=== PATIENT | male | born 1990 | race Caucasian/White ===

== ENCOUNTER 2024-02-28 09:45 | Emergency (ER) | payer OTHER, SELFPAY ==
[2024-02-28] VITALS (11 sets, daily range): BP systolic 123–142; BP diastolic 79–95; BMI 32.4
[2024-02-28 10:12] LABS: % Basophils 0.9 % (0-2); % Eosinophils 1.4 % (0-6); % Immature Granulocytes 0.7 % (0-0.5); % Lymphocytes 43.6 % (20.5-51.1); % Monocytes 9.1 % (1.7-9.3); % Neutrophils 44.3 % (42.2-75.2); Absolute Eosinophils 0.1 10^3/uL (0-0.7); Absolute Lymphocytes 1.9 10^3/uL (1.2-3.4); Absolute Monocytes 0.4 10^3/uL (0.1-0.6); Absolute Neutrophils 1.9 10^3/uL (1.4-6.5); Hematocrit 40.8 % (39.0-52.0); Hemoglobin 14.7 g/dL (13.0-18.0); Mean Corpuscular Hgb 33.7 pg (27.0-31.0); Mean Corpuscular Volume 93.6 fL (80.0-94.0); Mean Platelet Volume 9.2 fL (7.4-10.4); Nucleated Red Blood Cells % 0 % (-); Platelet Count 192 10^3/uL (130-400); Red Blood Cell Count 4.36 10^6/uL (4.70-6.10); Red Cell Dist. Width 12.1 % (11.5-14.5); White Blood Cell Count 4.4 10^3/uL (4.8-10.8)
--- NOTE | 2024-02-28 10:23 | ED.GENMED ---
History of Present Illness
General
Chief Complaint: Chest Pain
Source: patient and records
Exam Limitations: none
Time Seen by Provider: 02/28/24 10:21
Nursing documentation reviewed up to this point in time: agreed with
Travel History
Have you had any contact with someone who has COVID-19?: No
Do you have any symptoms of coronavirus? Fever > 100 degrees, chills, cough, shortness of breath, sore throat, loss of taste or smell, muscle aches, or headache?: No
History of Present Illness
History of Present Illness:
33 y/o male with PMH of epilepsy, asthma, presenting to the emergency department today with chest pain that started 20 min ago. He states that he was at work today when he suddenly experienced 10/10, mid sternal chest pain that radiated through his
chest and through the back. He said the pain was constant at the time and then while sitting in the ER, it started to resolve and soon and currently it is a 3 out of 10 in severity and the back pain went away. Patient states that when he is having
the pain, there is nothing in particular that made it worse, did not worsen with exertion. He has no associated shortness of breath, nausea, vomiting, abdominal pain. He denies any fevers or chills. Denies any coughing or upper URI symptoms.
Does have a family history of coronary artery disease in his maternal grandfather. Patient does vape frequently and drinks alcohol almost daily. Patient does follow with a primary care provider. Patient has a hx of seizure disorder for which he
takes lamictal daily.
Past History
Past History
ED Past Medical History: None
Social History
Tobacco: Non-smoker
Personal: Single
Living: with family
Employment: Other (Service, [employer])
Review of Systems
Review of Systems
All Other Systems: ROS reviewed and negative except as documented in HPI and ROS
Phy Exam
Physical Exam
Physical Exam:
Vitals: Vital signs are stable
General: Patient is well appearing and in no acute distress
Skin: Warm and dry, no rashes or lesions
Head: Normocephalic, atraumatic
Eyes: Scleral non-icteric
Cardiac: Regular rate and rhythm, no murmurs. No tenderness to palpation of the external chest wall.
Peripheral Vascular: No lower extremity edema, 2+ DP pulses b/l
Pulm: Normal respiratory effort, no wheezes
Abdomen: No abdominal tenderness
Neuro: CN II-XII intact, no focal neurologic deficits
Scores
Heart Score for Chest Pain Patients
STEMI patient?: No
History: Slightly or Non-Suspicious
ECG: Nonspecific Repolarization
Age: </= 45 years
Risk Factors: 1 or 2 Risk Factors
Troponin: </= Normal Limit
Heart Score for Chest Pain Patients: 2
Heart Score Risk: 2.5% MACE over next 6 weeks
Course
Orders/Labs/Results
Orders:
Orders
02/28/24 09:47
ECG [Electrocardiogram (*1)] Urgent
Reason for Study: Chest Pain
EKG- Treatment ONCE
02/28/24 10:03
Complete Blood Count/With Diff Urgent
Comprehensive Metabolic Panel Urgent
Troponin I Urgent
02/28/24 10:42
CR Chest - 2 Views Urgent
Comment:
Reason For Exam: chest pain
02/28/24 12:02
EKG [Electrocardiogram (*1)] Urgent
Reason for Study: Chest Pain
Comment: 2nd troponin
02/28/24 12:03
EKG- Treatment ONCE
02/28/24 12:15
Troponin I Urgent
Abnormal Lab Results
02/28/24
10:03
WBC 4.4 L 10^3/uL
(4.8-10.8)
RBC 4.36 L 10^6/uL
(4.70-6.10)
MCH 33.7 H pg
(27.0-31.0)
Immature Gran % 0.7 H %
(0-0.5)
ALT 84 H U/L
(0-50)
02/28/24 10:03
02/28/24 10:03
Vital Signs
Initial and Last Documented VS:
Initial Vital Signs
Temp Pulse Resp BP Pulse Ox
97.6 F 95 20 133/95 96
02/28/24 09:51 02/28/24 09:51 02/28/24 09:51 02/28/24 09:51 02/28/24 09:51
Last Documented Vital Signs
Temp Pulse Resp BP Pulse Ox
97.6 F 73 13 125/90 96
02/28/24 09:51 02/28/24 13:00 02/28/24 13:00 02/28/24 12:00 02/28/24 10:19
MDM/Problems Addressed
Differential Diagnosis Includes:
ddx include ACS, pneumothorax, asthma exacerbation, GERD, costochondritis
Chronic conditions affecting care: Other (epilepsy, asthma)
Acute Exacerbation and/or Progression of Chronic Illness: Other (epilepsy, asthma)
*Critical Care Note
Total Time (30-74mins, 75-104mins- exclusive of procedures): Not Applicable
Patient Management
Escalation/DeEscalation of care consider admission/obs:
33 y/o male with PMH of epilepsy, asthma, presenting to the emergency department today with chest pain that started 20 min ago. He states that he was at work today when he suddenly experienced 10/10, mid sternal chest pain that radiated through his
chest and through the back. Currently, his pain has largely resolved without intervention and now he has 3/10 chest pain with no back pain. CBC/CMP unremarkable, initial troponin normal, CXR negative. EKG demonstrates normal sinus rhythm with
questionable T wave inversion in lateral leads. Repeat troponin negative, repeat EKG with no new changes. We will have patient follow up with [place] chest pain hotline. Patient stable for discharge, return precautions given.
ED Attending Note
-
Portions of this chart may have been created with voice recognition software.� Occasional wrong word or��sound alike� substitutions may have occurred due to the inherent limitations of voice recognition software.
Discharge Plan
Departure
Patient Disposition: Home (Routine Discharge)
Date of Disposition: 02/28/24
Time of Disposition: 13:06
Patient with high blood pressure during this ER visit?: Yes
Condition: Good
Discharge Problem:
Chest pain
Instructions: Chest Pain DCA Follow Up, BLOOD PRESSURE
Referrals:
Noel Blum MD [Active] - Call in 1-3 days for appt
UNKNOWN - PT DOES,NOT KNOW [Family Provider] -
Activity Restrictions/Additional Instructions:
You should receive a call within the coming days to schedule an appointment with a sweatband shaper. If you do not receive a call, please call the number attached number to schedule an appointment.
Please follow up with your primary care provider.
PLEASE RETURN TO THE EMERGENCY DEPARTMENT SHOULD YOU EXPERIENCE AN ACUTE WORSENING OF YOUR PAIN, SHORTNESS OF BREATH, PALPITATIONS, SYNCOPAL EPISODES, DIZZINESS, LIGHTHEADEDNESS, BACK PAIN, OR OTHER CONCERNING SIGNS OR SYMPTOMS.
Interventions
Interventions:
*Risk Screen - Suicide Last Done: 02/28/24 09:51
*General Assessment Last Done: 02/28/24 09:51
*Neglect/Abuse Screening Last Done: 02/28/24 09:51
ED- Fall Risk Assessment Last Done: 02/28/24 10:19
*ED COVID-19 Vaccine History Last Done: 02/28/24 10:19
ED- Cardiac Assessment Last Done: 02/28/24 10:19
Discharge Date and Time
Print Language: FRISIAN
[2024-02-28 11:06] LABS: ALT (SGPT) 84 U/L (0-50); AST (SGOT) 56 U/L (17-59); Albumin 4.7 g/dl (3.5-5.0); Alkaline Phosphatase 61 U/L (38-126); Blood Urea Nitrogen 13 mg/dl (9-20); Carbon Dioxide 30 mmol/L (22-30); Chloride 102 mmol/L (98-107); Estimated Creatinine Clearance 122 ml/min; Glucose 91 mg/dl (70-99); Potassium 4.1 mmol/L (3.5-5.1); Sodium 140 mmol/L (135-145); Total Bilirubin 0.5 mg/dl (0.2-1.3); Troponin I < 0.012 ng/ml; eGFR > 60.00
[2024-02-28 12:58] LABS: Troponin I < 0.012 ng/ml
--- NOTE | 2024-02-28 13:21 | EDRN ---
Reviewed discharge instructions with patient. Verbalized understanding. Ambulated with steady gait to the lobby.
== END 2024-02-28 13:20 | disposition home or self-care (01) ==
LOC: EMR 09:45
PROVIDERS: Physician Assistant; EMERGENCY PHYSICIAN Emergency Medicine
DX: R07.9 Chest pain, unspecified (principal); R07.2 Precordial pain; J45.909 Unspecified asthma, uncomplicated; R03.0 Elevated blood-pressure reading, without diagnosis of hypertension; Z82.49 Family history of ischemic heart disease and other diseases of the circulatory system
CPT/HCPCS: 99285; 71046; 80053; 84484; 85025; 93005

== ENCOUNTER 2025-05-28 21:43 | Inpatient (IN) | payer OTHER, SELFPAY ==
[2025-05-28 14:19] VITALS: BP 145/85
[2025-05-28] MEDS: TYLENOL 1000 MG PO (14:30)
[2025-05-28 14:54] LABS: Hematocrit 40.7 % (39.0-52.0); Hemoglobin 14.2 g/dL (13.0-18.0); Mean Corp Hgb Conc. 34.9 g/dL (33.0-37.0); Mean Corpuscular Volume 95.1 fL (80.0-94.0); Nucleated Red Blood Cells % 0 % (-); Platelet Count 255 10^3/uL (130-400); Red Cell Dist. Width 11.5 % (11.5-14.5)
[2025-05-28 15:20] LABS: ALT (SGPT) 28 U/L (0-50); AST (SGOT) 26 U/L (17-59); Albumin 4.4 g/dl (3.5-5.0); Alkaline Phosphatase 81 U/L (38-126); Blood Urea Nitrogen 17 mg/dl (9-20); Calcium 9.5 mg/dl (8.4-10.2); Carbon Dioxide 24 mmol/L (22-30); Chloride 104 mmol/L (98-107); Potassium 4.2 mmol/L (3.5-5.1); Sodium 137 mmol/L (135-145); Total Protein 6.9 g/dl (6.3-8.2); eGFR > 60.00
[2025-05-28 15:31] LABS: Glucose 98 mg/dl (70-99)
[2025-05-28 16:00] VITALS: BP 133/76
[2025-05-28 16:21] VITALS: BMI 31.6
[2025-05-28] MEDS: TORADOL 15 MG IV (16:23)
[2025-05-28] MEDS: NSS 1000 IV ×2 (16:23→23:21)
--- NOTE | 2025-05-28 16:31 | ED.GENMED ---
History of Present Illness
<Ngoc Del Rosario PA-C - Last Filed: 05/29/25 01:26>
General
Chief Complaint: Fever
Source: patient
Exam Limitations: none
Time Seen by Provider: 05/28/25 15:44
Nursing documentation reviewed up to this point in time: agreed with
History of Present Illness
History of Present Illness:
Patient is a 34-year-old male with history epilepsy who presents to the emergency department for evaluation of fever. Patient states yesterday he had a temp of 102F at home. He also reports cramping pain in his lower abdomen which was somewhat
constant yesterday however seems somewhat improved today. On arrival to the emergency department�she had a fever of 102.2 and was given a gram of Tylenol. By my assessment is temperature is 99.7.
Patient denies any associated nausea, vomiting, constipation. Patient denies any dysuria or hematuria.
Of note�patient admitted for 1 night in the hospital on 05/17/2025 for diverticulitis with microperforation. Apparently he was given 1 day of IV antibiotics and transitioned to oral Augmentin which he took twice a day for a week. He recently
finished this course a few days ago prior to return of pain and fever. He states he has had diarrhea since the hospitalization.
Past History
<Ngoc Del Rosario PA-C - Last Filed: 05/29/25 01:26>
Past History
ED Past Medical History: None
Social History
Tobacco: Non-smoker
Personal: Single
Living: with family
Employment: Other (Service, [employer])
Review of Systems
<Ngoc Del Rosario PA-C - Last Filed: 05/29/25 01:26>
Review of Systems
Allergies reviewed?: Yes
All Other Systems: ROS reviewed and negative except as documented in HPI and ROS
Phy Exam
<Ngoc Del Rosario PA-C - Last Filed: 05/29/25 01:26>
Physical Exam
Physical Exam:
Vitals: Febrile, tachycardic
General: Patient is in no apparent distress.
Skin: Warm and dry, no rashes or lesions
Head: Normocephalic, atraumatic
Eyes: Sclera nonicteric.
Throat: Protecting airway
Neck: Normal ROM, no cervical spine tenderness, no meningismus
Cardiac: Mildly tachycardic, normal rhythm no murmurs.
Pulm: Normal respiratory effort, no wheezes, rales, rhonchi heard on exam
.
Abdomen: Abdomen soft. Moderate tenderness in suprapubic/left lower quadrant voluntary guarding.
Extremities: No evidence of cyanosis or edema
Neuro: AAOx3. Grossly intact.
Psychiatric: Normal affect.
Sepsis
<Ngoc Del Rosario PA-C - Last Filed: 05/29/25 01:26>
Sepsis Screening
Sepsis Assessment: Sepsis
Sepsis Screen
Sepsis Screen: Sepsis
Date: 05/28/25
Time: 20:00
Course
<Ngoc Del Rosario PA-C - Last Filed: 05/29/25 01:26>
Orders/Labs/Results
Orders:
Orders
05/28/25 14:27
Acetaminophen [Tylenol] 1,000 mg .ROUTE .STK-MED ONE
05/28/25 14:29
Acetaminophen [Tylenol] 1,000 mg PO NOW STA
05/28/25 14:45
CMP [Comprehensive Metabolic Panel] Urgent
Complete Blood Count/With Diff Urgent
Lactic Acid Urgent
Blood Culture Stat
JOSE Source: Blood/Venous
Specimen Description:
05/28/25 16:15
CT Abd/pelvis W Iv Cont Urgent
Comment: recently treated diverticulitis w/ microperf
Reason For Exam: peristent LLQ pain, fever
05/28/25 16:16
0.9% Sodium Chloride 1000 ml [Nss] 1,000 ml IV BOLUS
Ketorolac [Toradol] 15 mg IV NOW STA
05/28/25 16:22
COVID-19 Antigen Urgent
Source: Nasal Swab
Urinalysis Reflex To Culture Urgent
Date Specimen was Collected: 05/28/25
Time Specimen was Collected: 16:18
Urine Microscopic Reflex Cult Urgent
Blood Culture Urgent
JOSE Source: Blood/Venous
Specimen Description:
05/28/25 20:32
Morphine Sulfate 4 mg IV NOW STA
05/28/25 20:39
Ampicillin/Sulbactam 3 G [Unasyn] 3 gm 0.9% Sodium Chloride 100 ml [Nss] 100 ml IV NOW
05/28/25 21:25
Admit/Transfer Patient As Directed
Co-Sign Provider:
Level of Care: Inpatient admission
Assign to:: Medical/Surgical
Physician / Group: Sanchez Narvaez
Diagnosis: sepsis, Perforated sigmoid colitis, Pericolonic abscess
Reason for Hospitalization: sepsis, Perforated sigmoid colitis, Pericolonic abscess
Expected length of stay greater than two midnights?: Yes
ELOS- Estimated Length of Stay in days: 3
I certify the patient meets the requirements for IP care: Yes
PRN Pain Medication Management As Directed
May give lesser potent ordered pain med per pt: Yes
preference::
Protocol:: Medication orders for pain may be administered in a
manner that supports deferring to patient preference
when the pt is:
- Requesting an ordered lesser potent pain medication.
Least to most potent pain medications are defined
as: acetaminophen < NSAID < tramadol < opioids
(morphine, oxycodone, hydromorphone).
- Requesting a lesser dose of the same medication IF
ORDERED.
- Requesting a less intrusive route of administration
if both routes are prescribed by the provider (PO <
IV).
05/28/25 21:27
Code Status As Directed
Resuscitation Status: Full Code
05/28/25 22:09
Acetaminophen [Tylenol] 650 mg PO Q4HPRN PRN
Bisacodyl [Dulcolax] 10 mg RECTAL [id number] PRN
Docusate Sodium [Colace] 100 mg PO BIDPRN PRN constipation
Docusate W/Senna [Senokot-S] 1 tablet PO BIDPRN PRN
Ketorolac [Toradol] 10 mg IV Q6HPRN PRN
Morphine Sulfate 2 mg IV Q4HPRN PRN
Ondansetron Injectable [Zofran] 4 mg IV Q6HPRN PRN
Polyethylene Glycol Powder [Miralax] 17 grams PO DAILYPRN PRN
05/28/25 22:09
ColoRectal Surgery Consult Routine
Consulting Provider: Eliseo Talley
Was physician already notified: Yes
Activity As Directed
Activity Level: Ambulate
Pneumatic Compression Sleeves As Directed
Type: Knee high
Vital Signs As Directed
Frequency: Per unit guidelines
Weight As Directed
Frequency: Once
Comment: on admission
DX Deep Vein Thrombosis Video Routine
05/29/25 04:00
Piperacillin/Tazo 3.375 Gram [Zosyn] 3.375 gram in 50 ml IV Q6H
05/29/25 Breakfast
NPO
Allow oral meds: Yes
Allow clear liquids: 4hrs prior to procedure
NPO with Ice Chips: Yes
Comment: may have unrestricted clear liquid up to 4 hrs prior to scheduled procedure
Basic Metabolic Panel IN AM
Complete Blood Count/No Diff IN AM
05/29/25 08:00
Lamotrigine [Lamictal] 200 mg PO BID
Abnormal Lab Results
05/28/25 05/28/25
14:45 16:22
RBC 4.28 L 10^6/uL
(4.70-6.10)
MCV 95.1 H fL
(80.0-94.0)
MCH 33.2 H pg
(27.0-31.0)
Abs Immat Gran (auto) 0.1 H 10^3/uL
(0-0.05)
Absolute Neuts (auto) 6.6 H 10^3/uL
(1.4-6.5)
Absolute Lymphs (auto) 0.7 L 10^3/uL
(1.2-3.4)
Immature Gran % 0.6 H %
(0-0.5)
Neutrophils % 83.9 H %
(42.2-75.2)
Lymphocytes % 8.9 L %
(20.5-51.1)
Urine Ketones 3+ A
(Negative)
Urine Bacteria (Reflex) Few A
(Negative)
Urine Albumin (Reflex) 2+ A
(Neg - Trace)
05/28/25 14:45
05/28/25 14:45
Vital Signs
Initial and Last Documented VS:
Initial Vital Signs
Temp Pulse Resp BP Pulse Ox
102.2 F H 109 16 145/85 97
05/28/25 14:19 05/28/25 14:19 05/28/25 14:19 05/28/25 14:19 05/28/25 14:19
Last Documented Vital Signs
Temp Pulse Resp BP Pulse Ox
101.7 F H 109 20 162/82 97
05/28/25 22:17 05/28/25 22:17 05/28/25 22:17 05/28/25 22:17 05/28/25 22:17
<Fausto Cobian MD - Last Filed: 05/28/25 19:14>
Orders/Labs/Results
Orders:
Orders
05/28/25 14:27
Acetaminophen [Tylenol] 1,000 mg .ROUTE .STK-MED ONE
05/28/25 14:29
Acetaminophen [Tylenol] 1,000 mg PO NOW STA
05/28/25 14:45
CMP [Comprehensive Metabolic Panel] Urgent
Complete Blood Count/With Diff Urgent
Lactic Acid Urgent
Blood Culture Stat
JOSE Source: Blood/Venous
Specimen Description:
05/28/25 16:15
CT Abd/pelvis W Iv Cont Urgent
Comment: recently treated diverticulitis w/ microperf
Reason For Exam: peristent LLQ pain, fever
05/28/25 16:16
0.9% Sodium Chloride 1000 ml [Nss] 1,000 ml IV BOLUS
Ketorolac [Toradol] 15 mg IV NOW STA
05/28/25 16:22
COVID-19 Antigen Urgent
Source: Nasal Swab
Urinalysis Reflex To Culture Urgent
Date Specimen was Collected: 05/28/25
Time Specimen was Collected: 16:18
Urine Microscopic Reflex Cult Urgent
Blood Culture Urgent
JOSE Source: Blood/Venous
Specimen Description:
05/28/25 20:32
Morphine Sulfate 4 mg IV NOW STA
05/28/25 20:39
Ampicillin/Sulbactam 3 G [Unasyn] 3 gm 0.9% Sodium Chloride 100 ml [Nss] 100 ml IV NOW
05/28/25 21:25
Admit/Transfer Patient As Directed
Co-Sign Provider:
Level of Care: Inpatient admission
Assign to:: Medical/Surgical
Physician / Group: Sanchez Narvaez
Diagnosis: sepsis, Perforated sigmoid colitis, Pericolonic abscess
Reason for Hospitalization: sepsis, Perforated sigmoid colitis, Pericolonic abscess
Expected length of stay greater than two midnights?: Yes
ELOS- Estimated Length of Stay in days: 3
I certify the patient meets the requirements for IP care: Yes
PRN Pain Medication Management As Directed
May give lesser potent ordered pain med per pt: Yes
preference::
Protocol:: Medication orders for pain may be administered in a
manner that supports deferring to patient preference
when the pt is:
- Requesting an ordered lesser potent pain medication.
Least to most potent pain medications are defined
as: acetaminophen < NSAID < tramadol < opioids
(morphine, oxycodone, hydromorphone).
- Requesting a lesser dose of the same medication IF
ORDERED.
- Requesting a less intrusive route of administration
if both routes are prescribed by the provider (PO <
IV).
05/28/25 21:27
Code Status As Directed
Resuscitation Status: Full Code
05/28/25 22:09
Acetaminophen [Tylenol] 650 mg PO Q4HPRN PRN
Bisacodyl [Dulcolax] 10 mg RECTAL [id number] PRN
Docusate Sodium [Colace] 100 mg PO BIDPRN PRN constipation
Docusate W/Senna [Senokot-S] 1 tablet PO BIDPRN PRN
Ketorolac [Toradol] 10 mg IV Q6HPRN PRN
Morphine Sulfate 2 mg IV Q4HPRN PRN
Ondansetron Injectable [Zofran] 4 mg IV Q6HPRN PRN
Polyethylene Glycol Powder [Miralax] 17 grams PO DAILYPRN PRN
05/28/25 22:09
ColoRectal Surgery Consult Routine
Consulting Provider: Eliseo Talley
Was physician already notified: Yes
Activity As Directed
Activity Level: Ambulate
Pneumatic Compression Sleeves As Directed
Type: Knee high
Vital Signs As Directed
Frequency: Per unit guidelines
Weight As Directed
Frequency: Once
Comment: on admission
DX Deep Vein Thrombosis Video Routine
05/29/25 04:00
Piperacillin/Tazo 3.375 Gram [Zosyn] 3.375 gram in 50 ml IV Q6H
05/29/25 Breakfast
NPO
Allow oral meds: Yes
Allow clear liquids: 4hrs prior to procedure
NPO with Ice Chips: Yes
Comment: may have unrestricted clear liquid up to 4 hrs prior to scheduled procedure
Basic Metabolic Panel IN AM
Complete Blood Count/No Diff IN AM
05/29/25 08:00
Lamotrigine [Lamictal] 200 mg PO BID
Abnormal Lab Results
05/28/25 05/28/25
14:45 16:22
RBC 4.28 L 10^6/uL
(4.70-6.10)
MCV 95.1 H fL
(80.0-94.0)
MCH 33.2 H pg
(27.0-31.0)
Abs Immat Gran (auto) 0.1 H 10^3/uL
(0-0.05)
Absolute Neuts (auto) 6.6 H 10^3/uL
(1.4-6.5)
Absolute Lymphs (auto) 0.7 L 10^3/uL
(1.2-3.4)
Immature Gran % 0.6 H %
(0-0.5)
Neutrophils % 83.9 H %
(42.2-75.2)
Lymphocytes % 8.9 L %
(20.5-51.1)
Urine Ketones 3+ A
(Negative)
Urine Bacteria (Reflex) Few A
(Negative)
Urine Albumin (Reflex) 2+ A
(Neg - Trace)
05/28/25 14:45
05/28/25 14:45
Vital Signs
Initial and Last Documented VS:
Initial Vital Signs
Temp Pulse Resp BP Pulse Ox
102.2 F H 109 16 145/85 97
05/28/25 14:19 05/28/25 14:19 05/28/25 14:19 05/28/25 14:19 05/28/25 14:19
Last Documented Vital Signs
Temp Pulse Resp BP Pulse Ox
101.7 F H 109 20 162/82 97
05/28/25 22:17 05/28/25 22:17 05/28/25 22:17 05/28/25 22:17 05/28/25 22:17
<Ngoc Del Rosario PA-C - Last Filed: 05/29/25 01:26>
MDM/Problems Addressed
Differential Diagnosis Includes:
Not limited to: Incompletely treated diverticulitis, intra-abdominal abscess, bowel perforation, UTI/pyelonephritis, etc.
MDM/Problems Addressed:
34-year-old male recently treated for diverticulitis with micro perforation presenting with fever and persistent lower abdominal pain. Patient had one night of IV antibiotics 1.5 weeks ago, followed by a week long course of Augmentin.
Patient febrile and mildly tachycardia on arrival. On exam � patient overall well appearing. Abdomen is soft with moderate tenderness in suprapubic/left lower quadrant with voluntary guarding. His heart rate did improve somewhat by my assessment and
is in 90s. Labs were sent prior to my evaluation without clinically significant abnormalities. No leukocytosis. Lactic acid normal. Blood cultures were sent.
Given new fever as well as persistent abdominal pain in setting of recently treated diverticulitis � concern for complication such as perforation or abscess. No other source for fever at this time however will send Covid swab. Will check CT scan
abdomen/pelvis. Will give IV fluids and pain control.
Update: Covid swab negative. CT scan shows persistent focal perforation of sigmoid colitis with suspected developing intra-abdominal abscess. In lieu of complicated diverticulitis with systemic symptoms of infection � patient will require admission
for IV antibiotics and further monitoring. Colorectal surgery aware. Patient given Unasyn in the emergency department. Patient accepted to hospitalist service in stable condition.
Chronic conditions affecting care:
Recent diverticulitis with microperforation
Acute Exacerbation and/or Progression of Chronic Illness:
Acute complicated sigmoid colitis w/ developing intra- abdominal abscess
<Ngoc Del Rosario PA-C - Last Filed: 05/29/25 01:26>
*Radiology
Radiology exam reviewed: radiology read reviewed
*Pulse Oximetry
SaO2: 97
Oxygen Mode of Delivery: Room air
Patient hypoxic: no
*EKG
Interpreted by ED Provider?: NA
*Free Lance Artist Interpretation
Rate: Free Lance Artist- N/A
*Critical Care Note
Total Time (30-74mins, 75-104mins- exclusive of procedures): Not Applicable
Data Reviewed
Review of Other/Old Records Reveals: Discharge Summary (Discharge summary from outside hospital on 05/18/2020 1:05 night stay for diverticulitis complicated by microperforation, discharged on 7-day course of oral antibiotics (Augmentin))
<Ngoc Del Rosario PA-C - Last Filed: 05/29/25 01:26>
Patient Management
Discussion with other providers: Hospitalist and Pst Manager (Case discussed w/ colorectal surgery)
Escalation/DeEscalation of care consider admission/obs:
Admit for IV abx and continued monitoring
ED Attending Note
<Ngoc Del Rosario PA-C - Last Filed: 05/29/25 01:26>
-
Portions of this chart may have been created with voice recognition software.� Occasional wrong word or��sound alike� substitutions may have occurred due to the inherent limitations of voice recognition software.
<Fausto Cobian MD - Last Filed: 05/28/25 19:14>
ED Attending Note
Patient seen and examined by attending physician: Yes
I performed the substantive portion of visit, reviewed & personally made and approve the management plan that is documented in note by myself or ONI.: Yes
ED Attending Note:
34-year-old male presents with fever ongoing lower abdominal pain. Diagnosed with diverticulitis with microperforation about 12 days ago. Was on a course of Augmentin. Augmentin stopped 2 to 3 days ago. However fever started the last few days
along with some increasing cramps and lower pain.
On exam patient is nontoxic in no distress. Lungs are clear and equal. Heart regular rate and rhythm. Abdomen is soft. No rebound or guarding. No mass or hernia. Mild suprapubic and left lower quadrant tenderness. Warm and dry. Perfusing
well.
Impression is fever ongoing lower abdominal symptoms and recent diverticulitis with microperforation diagnosis. Nothing else clinically or by history to support other etiology for the fever. CT scan pending. If positive will need IV antibiotics
and admission
Discharge Plan
Departure
Patient Disposition: Admit
Date of Disposition: 05/28/25
Time of Disposition: 20:33
Presentation/result/management discussed w/ accepting MD/DO: Hospitalist
Discharge Problem:
Pericolonic abscess, Perforated sigmoid colitis
Interventions
Interventions:
*Risk Screen - Suicide Last Done: 05/28/25 14:19
*General Assessment Last Done: 05/28/25 16:21
*Neglect/Abuse Screening Last Done: 05/28/25 14:19
*ED COVID-19 Vaccine History Last Done: 05/28/25 22:43
*Nursing Disposition Last Done: 05/28/25 22:02
ED- Neurological Assessment Last Done: 05/28/25 16:38
ED-Skin Assessment Last Done: 05/28/25 16:38
Discharge Date and Time
Discharge Date/Time: 05/28/25 22:02
[2025-05-28 16:49] LABS: Urine Character Clear (Clear)
[2025-05-28 16:57] LABS: Urine Squamous Cell 0-2 /LPF (Few)
[2025-05-28 16:58] LABS: COVID-19 Antigen Negative (Negative); Urine Red Blood Cell 0-2 /HPF (0-2); Urine White Cell 0-2 /HPF (0-5)
[2025-05-28 19:47] VITALS: BP 142/95
[2025-05-28 20:00] VITALS: BP 130/89
--- NOTE | 2025-05-28 20:51 | HPS.HSE ---
Addendum entered and electronically signed by Sanchez Narvaez DO 05/28/25 21:46:
Patient seen and examined independently. Agree with findings and plan as set forth by SIOMARA Gunderson.
Patient is a 34y M with [facility] significant for epilepsy who presents to ED from his PCP office for evaluation of fever and tachycardia. Patient states that he developed abdominal pain over the 17 of May weekend. He was seen at [facility] where he was diagnosed with acute diverticulitis. He received a dose of IV abx and as discharged to home on Augmentin x 10 days. He completed this about 2 days ago. he was seen by his PCP today in follow-up and noted to be febrile and
tachycardic. He was advised to return to the ED for further evaluation.
Patient states that he has been having milder abdominal discomfort in the LLQ for the past 2 days.
Ass:
Sigmoid Diverticulitis with Perforation / Abscess
Sepsis secondary to the above
Seizure Disorder
Plan:
Admit for further evaluation and treatment.
NPO, IVFs, IV abx.
Colorectal Surgery evaluation.
? if area is amenable to IR drainage.
Follow fever curve and monitor for clinical improvement.
Continue usual lamotrigine.
Original Note:
Family Physician
-
Family Physician: Lynn Chacon
Chief Complaint
-
fever
History of Present Illness
Patient is a 34-year-old male with past medical history significant for epilepsy who presented to [facility] ED for evaluation of fever. Patient reports being at [facility] for abdominal pain and was diagnosed with diverticulitis with
microperf and treated with 1 bag IV antibiotics and discharged with 10 day course of Augmentin. Patient reports compliance and completion of Augmentin as prescribed. He states that 2 nights ago he noticed that he started with a temp. He also reports
abdominal cramping for the past 2 days. Today he was seen at doctors office and was reportedly tachycardic and febrile and was told he needed to come to the ED for evaluation as he was meeting sepsis criteria. Patient denies any cough, shortness of
breath, chest pain, nausea, vomiting, diarrhea or urinary symptoms.
Medical History
Past Medical History
Past Medical History: Reports Other
Additional Past Medical History:
epilepsy
Past Surgical History: Reports Other
Additional Past Surgical History:
right meniscus repair
tonsillectomy
double hernia with mesh repair
Social History
Tobacco: Non-smoker
Alcohol: Occasional
Drug: None
Personal: Single
Living: Alone
Employment: Employed
Family History
Family History: Not pertinent
Allergies / Home Medications
Allergies reflects when Allergies were last updated in [employer].
Home Medications with original date entered in [employer]
Allergy/Medication List:
Allergies
Allergy/AdvReac Type Severity Reaction Status Date / Time
No Known Allergies Allergy Verified 02/28/24 09:56
Home Medications
Fiber Plus Vitamin B 2 gummy PO DAILYPRN PRN constipation 05/28/25
Lactobacillus acidophilus (Acidophilus capsule) 1 cap PO DAILYPRN PRN gut health 05/28/25
acetaminophen 325 mg tablet (Tylenol) 650 mg PO Q4HPRN PRN fever 05/28/25
docusate sodium 100 mg capsule (Colace) 100 mg PO BIDPRN PRN constipation 05/28/25
fluorouracil 5 % topical cream 1 applic topical BID apply to forehead 05/28/25
lamotrigine 200 mg tablet 200 mg PO BID 05/28/25
tramadol 50 mg tablet 50 mg PO DAILYPRN PRN mild pain 05/28/25
Review of Systems
-
History Source: Patient
Constitutional: Reports Fever
Abdomen/GI: Reports Abdominal Pain; Denies Nausea, Vomiting or Diarrhea
Physical Exam
Vital Signs
Vital Signs
Temp Pulse Resp BP Pulse Ox
98.2 F 83 18 142/95 99
05/28/25 18:48 05/28/25 19:47 05/28/25 19:47 05/28/25 19:47 05/28/25 19:47
Physical Exam
General: Well Developed, Well Nourished, No Apparent Distress, Comfortable and Obese
HEENT: NormoCephalic, Moist mucous membranes and Atraumatic
Respiratory: Clear and Non Labored Respirations
Cardiac: S1/S2 and Regular Rhythm
GI: Soft, Normal Bowel Sounds, Tender and Distended
Rectal: Deferred by Provider
Genito-urinary: Deferred by me
Musculoskeletal: No Clubbing, No Cyanosis and No Edema
Skin: Warm and IV/Catheter Site
Neuro: Awake, AO x 3 and Nonfocal/grossly intact
Psych: Calm and Intact Judgment/Insight
Laboratory Results
-
05/28/25 14:45
05/28/25 14:45
Laboratory Results
Lactic Acid 0.8 mmol/L (0.7-2.0) 05/28/25 14:45
Total Bilirubin 0.6 mg/dl (0.2-1.3) 05/28/25 14:45
AST 26 U/L (17-59) 05/28/25 14:45
ALT 28 U/L (0-50) 05/28/25 14:45
Alkaline Phosphatase 81 U/L (38-126) 05/28/25 14:45
Data Reviewed
-
CT Scan: Report Reviewed by me (Abd/Pel: Findings of focally perforated colitis along the mid sigmoid colon with a 2.8 x 2.8 x 3.8 cm likely developing pericolonic abscess. There is mild wall thickening in the small bowel adjacent to the developing
abscess which is suggestive of reactive enteritis. There are areas of submucosal f)
Lab Data: Labs Reviewed by me
Impression/Plan
-
IMPRESSION/PLAN:
#sepsis 2/2 perforated sigmoid colitis w/ developing pericolonic abscess
Abd/Pel CT: Findings of focally perforated colitis along the mid sigmoid colon with a 2.8 x 2.8 x 3.8 cm likely developing pericolonic abscess. There is mild wall thickening in the small bowel adjacent to
the developing abscess which is suggestive of reactive enteritis.
There are areas of submucosal fatty deposition within the colon and terminal ileum which is nonspecific, however can be seen with chronic inflammation such as in the setting of inflammatory
bowel disease.
- Admit to med/surg
- Consult colorectal
- IV Zosyn
- pain regimen
- antiemetics
- supportive care
- NPO for possible intervention
#epilepsy
- continue lamotrigine
Code status: full code
DVT prophylaxis: SCDs
[2025-05-28] MEDS: MORPHINE SULFATE 4 MG IV (20:53)
[2025-05-28 21:00] VITALS: BP 103/83
[2025-05-28] MEDS: UNASYN IV (21:01)
[2025-05-28] MEDS: TYLENOL 650 MG PO (22:16)
[2025-05-28 22:17] VITALS: BP 162/82
[2025-05-28 23:07] VITALS: BMI 31.5
[2025-05-28] MEDS: LAMICTAL 200 MG PO (23:21)
[2025-05-29] VITALS (9 sets, daily range): BP systolic 75–146; BP diastolic 74–96
[2025-05-29] MEDS: ZOSYN 50 IV ×4 (04:11→22:25)
[2025-05-29] MEDS: TYLENOL 650 MG PO ×3 (04:16→22:27)
[2025-05-29 07:45] LABS: Hematocrit 38.2 % (39.0-52.0); Hemoglobin 13.1 g/dL (13.0-18.0); Mean Corp Hgb Conc. 34.3 g/dL (33.0-37.0); Mean Corpuscular Volume 96.2 fL (80.0-94.0); Platelet Count 232 10^3/uL (130-400); Red Cell Dist. Width 11.4 % (11.5-14.5)
[2025-05-29 08:09] LABS: Blood Urea Nitrogen 13 mg/dl (9-20); Calcium 8.7 mg/dl (8.4-10.2); Carbon Dioxide 25 mmol/L (22-30); Chloride 107 mmol/L (98-107); Estimated Creatinine Clearance > 125 ml/min; Glucose 86 mg/dl (70-99); Potassium 4.0 mmol/L (3.5-5.1); Sodium 136 mmol/L (135-145); eGFR > 60.00
[2025-05-29] MEDS: LAMICTAL 200 MG PO ×2 (08:47→20:29)
--- NOTE | 2025-05-29 09:25 | CON.CRS ---
Consultation
-
Date/Time Consultation Requested: 05/28/2025, 6:00
Date/Time Consultation Performed: 05/29/2025, 08:30
Requesting Provider: Angeles Baca CRNP
Performing Provider: Milo Talley MD
Reason for Consultation: diverticulitis
Medical History
-
Chief Complaint: abdominal pain
History of Present Illness:
34-year-old male, recently diagnosed with diverticulitis, presents to [facility] complaining of abdominal pain. The patient states his abdominal pain started while he was on vacation around May 17 while in the [facility]. He went to [place] [facility] and was diagnosed with diverticulitis with a microperforation. He was given 1 bag of IV antibiotics and discharged with 10 days of Augmentin which he took. He was feeling well until about 3 days ago when his abdominal pain started
getting worse. He describes it as a cramping like pain that has not resolved. He also noted fevers at home with 102 temperatures. He also complains of some constipation and has not had a bowel movement in the past 2 days. Normally he is regular.
He has never had a prior colonoscopy. He has never had prior colon or rectal surgery. He did have a inguinal hernia repair bilaterally and a mesh was in place. This is his first attack of diverticulitis.
In the ER his WBC was 7.9 and is 8.7 today. He has been having fevers with a Tmax of 102.9. He has been started on IV today he states Zosyn. CT of the abdomen pelvis shows findings of focally perforated colitis along the mid sigmoid colon with a
2.8 x 2.8 x 3.8 cm likely developing pericolonic abscess. There is mild wall thickening in the small bowel adjacent to the developing abscess which is suggestive of reactive enteritis.
He is feeling a little bit better and he is having flatus. Given the above findings, we have been consulted for surgical recommendations.
Past Medical History
Past Medical History: Other (Epilepsy)
Past Surgical History: Other (Right meniscus repair, tonsillectomy, bilateral inguinal hernia repair with mesh.)
Social History
Tobacco: Non-Smoker
Alcohol: Occasional
Drug: None
Family History
Family History: Reviewed & Not Pertinent
Allergies / Home Medications
Allergy/AdvReac Type Severity Reaction Status Date / Time
No Known Allergies Allergy Verified 02/28/24 09:56
�Medication �Instructions �Recorded �Confirmed �Type
Fiber Plus Vitamin B 2 gummy PO DAILYPRN PRN 05/28/25 05/28/25 History
constipation
Lactobacillus acidophilus 1 cap PO DAILYPRN PRN gut health 05/28/25 05/28/25 History
(Acidophilus capsule)
acetaminophen 325 mg tablet 650 mg PO Q4HPRN PRN fever 05/28/25 05/28/25 History
(Tylenol)
docusate sodium 100 mg capsule 100 mg PO BIDPRN PRN constipation 05/28/25 05/28/25 History
(Colace)
fluorouracil 5 % topical cream 1 applic topical BID apply to 05/28/25 05/28/25 History
forehead
lamotrigine 200 mg tablet 200 mg PO BID Seizures 05/28/25 05/28/25 History
tramadol 50 mg tablet 50 mg PO DAILYPRN PRN mild pain 05/28/25 05/28/25 History
Review of Systems
-
History Source: Patient
Constitutional: Fever
Abdomen/GI: Abdominal Pain and Constipated
A 10 point review of systems was completed, and was negative except as per HPI.
Physical Exam
Vital Signs
Temp 97.7 F 05/29/25 07:22
Pulse 82 05/29/25 07:22
Resp Rate 20 05/29/25 07:22
Blood pressure 121/74 05/29/25 07:22
SaO2 97 05/29/25 07:22
05/28/25 05/29/25 05/30/25
06:59 06:59 06:59
Actual Weight 96.615 kg
Body Mass Index (BMI) 31.5
Lab Results / Allergies
05/29/25 07:05
05/29/25 07:05
WBC 8.7 10^3/uL (4.8-10.8) 05/29/25 07:05
Hgb 13.1 g/dL (13.0-18.0) 05/29/25 07:05
Hct 38.2 % (39.0-52.0) L 05/29/25 07:05
Plt Count 232 10^3/uL (130-400) 05/29/25 07:05
Abs Immat Gran (auto) 0.1 10^3/uL (0-0.05) H 05/28/25 14:45
Neutrophils % 83.9 % (42.2-75.2) H 05/28/25 14:45
Allergy/AdvReac Type Severity Reaction Status Date / Time
No Known Allergies Allergy Verified 02/28/24 09:56
Physical Exam
General: Well Developed, Well Nourished and No Apparent Distress
GI: Soft, Non Distended and Tender (mild suprapubic pain)
Neuro: AO x 3
Psych: Calm
Data Reviewed
-
CT Scan: Image Personally Visualized and interpreted, Report Reviewed by me and Discussed with Patient
Labs: Labs Reviewed by me, Discussed with Physician and Discussed with Patient
Assessment / Plan
-
Assessment: 34-year-old male with sigmoid diverticulitis and associated abscess
Plan:
- IR consulted for drainage of abscess
- Okay for clear liquid diet after IR
- Continue IV antibiotics
- Will need eventual colonoscopy after this hospital course
- I updated his mother, via phone, with plans
- Continue to follow exam and labs
--- NOTE | 2025-05-29 09:49 | W.PN.HOSP.TC ---
Today's Communication/Plan
-
IV antibiotics. IR eval
Assessment / Plan
Assessment / Plan
Physical exam:
General: Acutely ill. Nontoxic appearance today
HEENT: Normocephalic, Atraumatic and Moist Mucous Membranes
Respiratory: Clear to Auscultation; Negative Wheezes, Rales or Rhonchi
Cardiac: Regular Rhythm and S1/S2
GI: Soft, tender and Nondistended
Musculoskeletal: No Clubbing, No Cyanosis and No Edema
Neuro: Awake, Alert and Oriented, no neurological deficit
Psych: Calm
A/P:
Sepsis due to perforated sigmoid colitis and developing pericolonic abscess:
Continue IV fluids
N.p.o. for now and might switch to clear liquid diet after intervention
Continue IV antibiotics, IV Zosyn
Pain control
Colorectal surgery consulted and asked IR for drainage
Discussed with mother over the phone at patient request
Epilepsy:
On lamotrigine
DVT prophylaxis:
SCDs
CODE STATUS:
Full code
Time spent 35 minutes
Anticipated Discharge: 24 - 48 hours
Subjective/Interval History
-
Date of Service: May 29, 2025
Patient feels better. No nausea or vomiting. Still having some abdominal pain. Passing gases but no bowel movement. Afebrile
Objective Data
-
Labs:
Laboratory Results
05/29/25
07:05
WBC 8.7
Hgb 13.1
Hct 38.2 L
Plt Count 232
Sodium 136
Potassium 4.0
Chloride 107
Carbon Dioxide 25
BUN 13
Creatinine 0.8
Glucose 86
Calcium 8.7
Vital Signs:
Vital Signs
Temp Pulse Resp BP Pulse Ox
97.7 F 82 20 121/74 97
05/29/25 07:22 05/29/25 07:22 05/29/25 07:22 05/29/25 07:22 05/29/25 07:22
I&O
05/28/25 05/29/25 05/30/25
06:59 06:59 06:59
Intake Total 820 / 820
Balance 820 / 820
[2025-05-29] MEDS: TORADOL 10 MG IV (12:13)
--- NOTE | 2025-05-29 13:56 | CM ---
Pt admitted from home with fever and abdominal pain. Recently at [facility], diagnosed with diverticulitis and treated with IV abx and 10 days of augmentin. Pain had subsided but returned, and now found to have an abcess developing.
Plan: Pt for IR drainage of abcess.
Pt lives with his mother
Plan: Watch for IV ABX needs at discharge.
--- NOTE | 2025-05-29 16:06 | W.PN.UPDATE ---
Update Note
Progress Note Update
CT guided abdominal abscess drain placed, yielding 35 cc grossly purulent fluid. Sent for C+S.
[2025-05-29] MEDS: NSS 1000 IV (16:43)
[2025-05-29] MEDS: MORPHINE SULFATE 2 MG IV (22:47)
[2025-05-30] MEDS: ZOSYN 50 IV ×4 (04:18→21:36)
[2025-05-30] MEDS: NSS 1000 IV (04:19)
[2025-05-30 07:30] VITALS: BP 132/88
[2025-05-30 07:43] LABS: Hematocrit 38.8 % (39.0-52.0); Hemoglobin 13.5 g/dL (13.0-18.0); Mean Corp Hgb Conc. 34.8 g/dL (33.0-37.0); Mean Corpuscular Volume 94.6 fL (80.0-94.0); Nucleated Red Blood Cells % 0 % (-); Platelet Count 247 10^3/uL (130-400); Red Cell Dist. Width 11.5 % (11.5-14.5)
--- NOTE | 2025-05-30 07:44 | W.PN.CRS1 ---
Today's Communication / Plan
-
low residue
IV abx
trend wbc/fever curve
Assessment/Plan
-
Assessment: 34-year-old male with sigmoid diverticulitis and associated abscess
WBC: pending (8.7), tmax 100.6
05/29- IR drain placement
Plan:
- Maintain IR drain, cultures pending
- Advance diet to low residue
- Continue IV antibiotics
- Will need eventual colonoscopy after this hospital course
- I updated his mother, via phone, while in patient's room
- Continue to follow exam and labs
- No plans for surgery
Subjective Data
Subjective Data
Date of Service: May 30, 2025
Patient states he is feeling a little better today. Denies nausea or vomiting. Tolerated clears. Sore around drain site.
Objective Data
-
Vital Signs
Temp Pulse Resp BP Pulse Ox
98.5 F 88 16 140/79 96
05/30/25 03:19 05/29/25 23:16 05/29/25 23:16 05/29/25 23:16 05/29/25 23:16
Intake & Output
05/29/25 05/30/25 05/31/25
06:59 06:59 06:59
Intake Total 820 / 820 2029
Output Total 35 / 35
Balance 820 / 820 1994
Intake:
Oral fluids 960 / 960
IV fluids (Total) 720 / 720 960 / 960
IV piggybacks 100 / 100 100 / 100
Amount instilled into Drain (
Total)
Left Lower Abdomen Placed in IR
Output:
Drain Output (Total) 35 / 35
Left Lower Abdomen Placed in IR
Other:
Number of approximated MODERATE 1 3
amounts of urine
Lab Results
05/30/25 07:14
Physical Exam
-
General: No Acute Distress and AOx3
Abdomen: Soft, Non Distended, Tender (mild LLQ) and Other (NETTE drain serous/bloody)
Skin: Warm and Dry
[2025-05-30 08:04] LABS: Blood Urea Nitrogen 8 mg/dl (9-20); Calcium 8.5 mg/dl (8.4-10.2); Carbon Dioxide 23 mmol/L (22-30); Chloride 106 mmol/L (98-107); Estimated Creatinine Clearance > 125 ml/min; Glucose 83 mg/dl (70-99); Potassium 4.1 mmol/L (3.5-5.1); Sodium 137 mmol/L (135-145); eGFR > 60.00
--- NOTE | 2025-05-30 08:07 | W.PN.HOSP.TC ---
Addendum entered and electronically signed by Dale Hernandez MD 05/30/25 12:43:
Sigmoid Diverticulitis with Abscess
Original Note:
Today's Communication/Plan
-
IV antibiotic
Assessment / Plan
Assessment / Plan
Physical exam:
General: Acutely ill. Nontoxic appearance today
HEENT: Normocephalic, Atraumatic and Moist Mucous Membranes
Respiratory: Clear to Auscultation; Negative Wheezes, Rales or Rhonchi
Cardiac: Regular Rhythm and S1/S2
GI: Soft, mild tender and Nondistended
Musculoskeletal: No Clubbing, No Cyanosis and No Edema
Neuro: Awake, Alert and Oriented, no neurological deficit
Psych: Calm
A/P:
Sepsis due to perforated sigmoid colitis and developing pericolonic abscess:
Off IV fluid
Low residue diet
Continue IV antibiotics, IV Zosyn and waiting for cultures
Pain control
Colorectal surgery consulted and asked IR for drainage
Discussed with mother over the phone at patient request yesterday
Status post IR drainage on 05/29
Trend temperature curve and WBC
Epilepsy:
On lamotrigine
DVT prophylaxis:
SCDs
CODE STATUS:
Full code
Time spent 35 minutes
Anticipated Discharge: 24 - 48 hours
Subjective/Interval History
-
Date of Service: May 30, 2025
Patient feels better overall today. No nausea or vomiting. Abdominal discomfort at drain site. Afebrile
Objective Data
-
Labs:
Laboratory Results
05/30/25
07:14
WBC 6.7
Hgb 13.5
Hct 38.8 L
Plt Count 247
Sodium 137
Potassium 4.1
Chloride 106
Carbon Dioxide 23
BUN 8 L
Creatinine 0.8
Glucose 83
Calcium 8.5
Vital Signs:
Vital Signs
Temp Pulse Resp BP Pulse Ox
98.5 F 88 16 140/79 96
05/30/25 03:19 05/29/25 23:16 05/29/25 23:16 05/29/25 23:16 05/29/25 23:16
I&O
05/29/25 05/30/25 05/31/25
06:59 06:59 06:59
Intake Total 820 / 820 2029
Output Total 35 / 35
Balance 820 / 820 1994 / 1994
[2025-05-30] MEDS: LAMICTAL 200 MG PO ×2 (09:16→19:45)
[2025-05-30] MEDS: TYLENOL 650 MG PO (09:19)
--- NOTE | 2025-05-30 11:47 | PN.CDI ---
CDI
- -
CDI:
Physician Documentation Request
Admit Date: 05/28/25 21:43
Dear Doctor Mary,
.
Clinical Indicators:
Patient admitted with abdominal pain and sepsis.
Patient recently complete course of Augmentin for acute diverticulitis.
05/30 PN, 'Sepsis due to perforated sigmoid colitis and developing pericolonic abscess'
05/30 Colorectal PN, 'sigmoid diverticulitis and associated abscess'
Due to potentially conflicting documentation, please clarity likely etiology of the abdominal pain:
Sigmoid Diverticulitis with Abscess
Colitis with pericolonic abscess
Other (please specify)
Use of terms such as suspected, likely, concern for, or probable (associated with a specific diagnosis that is being evaluated, monitored, or treated as if it exists) are acceptable and can be coded in the inpatient setting, when documented at the
time of discharge.
Thank you,
JERRY Quiñones RN
CDI Specialist
available via tiger text
Please use your independent medical judgment in providing your response.
[2025-05-30 15:20] VITALS: BP 140/93
--- NOTE | 2025-05-30 15:27 | CM ---
Reviewed the chart notes and spoke with the patient at the bedside. Discussed NETTE drain management and possible need for VN services. Patient's mother is a COMPUTER NETWORK SUPPORT SPECIALIST and he feels confident that he can empty the bulb and his mother can observe for any s/s
of infection, etc. CM continues to be available to patient/family and is monitoring medical plan for needs at discharge.
Plan: Discharge to home when medically stable.
[2025-05-30] MEDS: TORADOL 10 MG IV ×2 (15:53→22:24)
[2025-05-30 23:10] VITALS: BP 139/82
[2025-05-31] MEDS: ZOSYN 50 IV (03:38)
[2025-05-31 06:28] LABS: Hematocrit 36.4 % (39.0-52.0); Hemoglobin 12.5 g/dL (13.0-18.0); Mean Corp Hgb Conc. 34.3 g/dL (33.0-37.0); Mean Corpuscular Volume 95.3 fL (80.0-94.0); Nucleated Red Blood Cells % 0 % (-); Platelet Count 255 10^3/uL (130-400); Red Cell Dist. Width 11.4 % (11.5-14.5)
[2025-05-31 06:58] LABS: Blood Urea Nitrogen 9 mg/dl (9-20); Calcium 9.0 mg/dl (8.4-10.2); Carbon Dioxide 25 mmol/L (22-30); Chloride 108 mmol/L (98-107); Estimated Creatinine Clearance > 125 ml/min; Glucose 86 mg/dl (70-99); Potassium 4.0 mmol/L (3.5-5.1); Sodium 138 mmol/L (135-145); eGFR > 60.00
[2025-05-31 08:41] VITALS: BP 141/92
[2025-05-31] MEDS: LAMICTAL 200 MG PO (09:16)
--- NOTE | 2025-05-31 09:19 | CM ---
Reviewed the chart notes. NETTE drain remains. CM continues to be available to patient/family and is monitoring medical plan for needs at discharge.
Plan: Discharge to home when medically stable. Patient declining VN needs as mother is ESTATE AGENT.
--- NOTE | 2025-05-31 11:18 | W.PN.HOSP.TC ---
Today's Communication/Plan
-
Antibiotics. Colorectal reeval
Assessment / Plan
Assessment / Plan
Physical exam:
General: No acute distress
HEENT: Normocephalic, Atraumatic and Moist Mucous Membranes
Respiratory: Clear to Auscultation; Negative Wheezes, Rales or Rhonchi
Cardiac: Regular Rhythm and S1/S2
GI: Soft, mild tender and Nondistended. Drain in place
Musculoskeletal: No Clubbing, No Cyanosis and No Edema
Neuro: Awake, Alert and Oriented, no neurological deficit
Psych: Calm
A/P:
Sepsis due to perforated sigmoid colitis and developing pericolonic abscess:
Off IV fluid
Low residue diet
Cultures came back with E. coli resistant to Augmentin. Reviewed rest of the cultures sensitivity.
Change antibiotics from Zosyn to Cipro and Flagyl based on cultures.
Appreciated colorectal surgery input
Discussed with mother over the phone at patient request today again
Status post IR drainage on 05/29
Plan to discharge once cleared by colorectal
Epilepsy:
On lamotrigine
DVT prophylaxis:
SCDs
CODE STATUS:
Full code
Anticipated Discharge: Today
Subjective/Interval History
-
Date of Service: May 31, 2025
Patient feels better overall. Afebrile
Objective Data
-
Labs:
Laboratory Results
05/31/25
05:22
WBC 6.4
Hgb 12.5 L
Hct 36.4 L
Plt Count 255
Sodium 138
Potassium 4.0
Chloride 108 H
Carbon Dioxide 25
BUN 9
Creatinine 0.8
Glucose 86
Calcium 9.0
Vital Signs:
Vital Signs
Temp Pulse Resp BP Pulse Ox
98.6 F 76 18 141/92 95
05/31/25 08:41 05/31/25 08:41 05/31/25 08:41 05/31/25 08:41 05/31/25 09:19
I&O
05/30/25 05/31/25 06/01/25
06:59 06:59 06:59
Intake Total 2029 1415 / 1415 480 / 480
Output Total 35 / 35
Balance 1994 1390 / 1390 480 / 480
[2025-05-31] MEDS: ZOSYN IV (11:19)
[2025-05-31] MEDS: CIPRO 500 MG PO (11:29)
[2025-05-31] MEDS: FLAGYL 500 MG PO ×2 (11:29→15:52)
--- NOTE | 2025-05-31 12:30 | W.PN.CRS1 ---
Today's Communication / Plan
-
Disposition per hospitalist.
Assessment/Plan
-
Sigmoid diverticulitis with abscess. Status post IR drain placement.
1. WBC normalized. Afebrile. On antibiotics.
2. Continue drain flushes.
3. Talk to patient and his mother about his circumstance. He can be discharged with the drain of the hospitalists discretion. His mother being an CANDY FORMING MACHINE OPERATOR, wishes to do the drain care herself. This is reasonable. He will follow-up with Dr. Powell in a
week or so.
Subjective Data
Subjective Data
Date of Service: May 31, 2025
Minimal discomfort.
Tolerating diet.
Objective Data
-
Vital Signs
Temp Pulse Resp BP Pulse Ox
98.6 F 76 18 141/92 95
05/31/25 08:41 05/31/25 08:41 05/31/25 08:41 05/31/25 08:41 05/31/25 09:19
Intake & Output
05/30/25 05/31/25 06/01/25
06:59 06:59 06:59
Intake Total 2029 1415 / 1415 960 / 960
Output Total
Balance 1994 / 1994 1390 / 1390 960 / 960
Intake:
Oral fluids 960 / 960 1320 / 1320 960 / 960
IV fluids (Total) 960 / 960
IV piggybacks 100 / 100 95 / 95
Amount instilled into Drain (
Total)
Left Lower Abdomen Placed in IR
Output:
Drain Output (Total)
Left Lower Abdomen Placed in IR
Other:
Number of approximated MODERATE 3 4
amounts of urine
Number of unmeasured liquid
stools
Rectum 1
Lab Results
05/31/25 05:22
05/31/25 05:22
Physical Exam
-
General: No Acute Distress
Chest: Clear
Cardiovascular: Regular Rate & Rhythm
Abdomen: Soft, Non Distended and Tender (Mild left lower quadrant; IR drain with small volume output)
--- NOTE | 2025-05-31 12:42 | W.DCSUMMARY ---
Discharge Summary
Discharge Data
Date of Admission: 05/28/25
Date of Discharge: 05/31/25
Total time spent discharging patient (in min): 32
-
Pending Results: No
Hospital Course
Patient 34 years old male with no significant past medical history came into the hospital with episode of sigmoid diverticulitis with abscess and sepsis related to that. Colorectal surgery consulted. He was given IV antibiotics, pain medications,
and initially kept n.p.o. IR consulted and he had a drain of the abscess. His pain was better controlled. He remained hemodynamically stable and afebrile. His cultures came back E. coli resistant to Augmentin but sensitive to multiple other
antibiotics. He was placed on ciprofloxacin and Flagyl. Colorectal surgery cleared him for discharge. He will be discharged in relatively stable condition today.
Discharge duration: 32 minutes
Discharge Plan
-
Patient Disposition: Home (Routine Discharge)
Discharge Diagnosis/Procedures: Sigmoid diverticulitis with abscess. Sepsis. Epilepsy
Diet: Low Residue
Activity: As tolerated
Blood Work: Please PCP to order CBC, BMP within 1 week
Wound Care: Drain care as instructed by colorectal surgeon.
Instructions: Alcohol and your health, Losing weight through diet, Diverticulitis - Discharge instructions, How to care for a closed suction drain
Referrals:
Lynn Chacon DO [Family Provider, Internal Medicine] - in less than 1 week
Eliseo Talley MD [Active, ColoRectal] - in one to two weeks
Prescriptions:
New
metronidazole 500 mg Tablet
500 mg PO Q8 14 Days Qty: 42 0RF
ciprofloxacin HCl 500 mg Tablet
500 mg PO BID 14 Days Qty: 28 0RF
Continued
acetaminophen [Tylenol] 325 mg Tablet
650 mg PO Q4HPRN PRN (Reason: fever)
lamotrigine 200 mg Tablet
200 mg PO BID
fluorouracil 5 % Cream
1 applic TOPICAL BID
tramadol 50 mg Tablet
50 mg PO DAILYPRN PRN (Reason: mild pain)
docusate sodium [Colace] 100 mg Capsule
100 mg PO BIDPRN PRN (Reason: constipation)
Acidophilus Capsule
1 cap PO DAILYPRN PRN (Reason: gut health)
Fiber Plus Vitamin B
2 gummy PO DAILYPRN PRN (Reason: constipation)
Discharge Orders:
Discharge Patient (As Directed); Ordered 05/31/25
Ordered By: Dale Hernandez
Discharge Date and Time
Discharge Date/Time: 05/31/25 15:58
Print Language: UPPER SORBIAN
[2025-05-31 15:06] VITALS: BP 124/73
== END 2025-05-31 15:58 | disposition home or self-care (01) | DRG 872 ==
LOC: 2 NORTH 21:43
PROVIDERS: Nurse Practitioner Family; Physician Assistant; Radiology Vascular & Interventional Radiology; ADMITTING PHYSICIAN Hospitalist; ATTENDING PHYSICIAN Hospitalist; CONSULT PHYSICIAN Surgery; EMERGENCY PHYSICIAN Emergency Medicine; FAMILY PHYSICIAN Internal Medicine
PROC: 0W9G30Z Drainage of Peritoneal Cavity with Drainage Device, Percutaneous Approach (ICD-10-PCS; 2025-05-29)
DX: A41.51 Sepsis due to Escherichia coli [E. coli] (principal); K57.20 Diverticulitis of large intestine with perforation and abscess without bleeding; Z16.11 Resistance to penicillins; G40.909 Epilepsy, unspecified, not intractable, without status epilepticus; R19.7 Diarrhea, unspecified; Z11.52 Encounter for screening for COVID-19
CPT/HCPCS: 49406; 74177; 80048; 80053; 81003; 81015; 83605; 85025; 85027; 87040; 87070; 87077; 87186; 87205; 87811; 96361; 96365; 96375; 99152; 99153; 99284; Q9967

== ENCOUNTER → 2025-06-04 09:55 | Outpatient (REF) | payer OTHER, SELFPAY ==
[2025-06-04 10:09] VITALS: BP 135/87; BP_SYST 77
[2025-06-04 11:11] VITALS: BP 125/78
== END ==
LOC: RADI 09:55
PROVIDERS: ATTENDING PHYSICIAN Surgery; FAMILY PHYSICIAN Internal Medicine
DX: Z46.82 Encounter for fitting and adjustment of non-vascular catheter (principal); K57.20 Diverticulitis of large intestine with perforation and abscess without bleeding
CPT/HCPCS: 49424; 76080

== ENCOUNTER → 2025-06-10 11:47 | Outpatient (REF) | payer OTHER, SELFPAY | LOC: CLAB 11:47 | PROVIDERS: ATTENDING PHYSICIAN Surgery | DX: K57.20 Diverticulitis of large intestine with perforation and abscess without bleeding (principal); Z11.51 Encounter for screening for human papillomavirus (HPV) | CPT/HCPCS: 87624; 88112 ==

== ENCOUNTER 2025-07-02 06:17 | Day surgery (SDC) | payer OTHER, SELFPAY | END 2025-07-02 13:56 | disposition home or self-care (01) | LOC: GI 06:17 | PROVIDERS: ATTENDING PHYSICIAN Surgery | DX: Z12.11 Encounter for screening for malignant neoplasm of colon (principal); K52.9 Noninfective gastroenteritis and colitis, unspecified; D12.5 Benign neoplasm of sigmoid colon | CPT/HCPCS: 45380; 88305 ==